=== PATIENT | male | born 1990 | race Caucasian/White ===

== ENCOUNTER 2017-12-17 13:15 | Emergency (ER) | payer OTHER ==
[~2017-12-17] VITALS: Ht 185.4 cm; Wt 77.1 kg
[~2017-12-17 13:15] MED LIST: ALBU90OI INH; Prednisone10 MG PO; Prednisone20 MG PO; SPACE CHAMBER1 EACH MC
[2017-12-17] MEDS ORDERED: ALBU90OI INH (13:52)
== END 2017-12-17 13:57 | disposition home or self-care (01) ==
LOC: ER 13:15
DX: Z76.0 Encounter for issue of repeat prescription (principal); J45.909 Unspecified asthma, uncomplicated; Z87.891 Personal history of nicotine dependence; Z79.51 Long term (current) use of inhaled steroids
CPT/HCPCS: 99281